=== PATIENT | male | born 1965 | race Caucasian/White ===

== ENCOUNTER 2024-05-31 17:26 | Emergency (ER) | payer OTHER ==
[~2024-05-31] VITALS: Ht 185.4 cm; Wt 104.3 kg
[2024-05-31 17:28] VITALS: BP 124/89; PULSE 82; RESP 18; TEMP 97.8; O2SAT 96
[2024-05-31 17:55] VITALS: O2SAT 96
[2024-05-31] MEDS: FLUORESCEIN OPTH STRIP 1 MG OP ONE (18:00)
[2024-05-31] MEDS ORDERED: IBUP-1842 PO (18:04)
[2024-05-31] MEDS ORDERED: OFLO10SO2 RIGHT EYE (18:04)
[2024-05-31 18:28] VITALS: BP 124/89; PULSE 82; RESP 18; TEMP 97.8; O2SAT 96
== END 2024-05-31 18:30 | disposition home or self-care (01) ==
LOC: MED 17:26
DX: T15.01XA Foreign body in cornea, right eye, initial encounter (principal); E11.9 Type 2 diabetes mellitus without complications; Z79.899 Other long term (current) drug therapy; W44.8XXA Other foreign body entering into or through a natural orifice, initial encounter; Y93.89 Activity, other specified; Y92.89 Other specified places as the place of occurrence of the external cause; Y99.8 Other external cause status
CPT/HCPCS: 65220; 99284